=== PATIENT | male | born 1970 | race Two or more races ===

== ENCOUNTER 2023-11-27 22:02 | Emergency (ER) | payer SELFPAY ==
[~2023-11-27] VITALS: Ht 167.6 cm; Wt 86.4 kg
[2023-11-27 23:27] VITALS: BP 160/70; PULSE 66; RESP 16; TEMP 99
[2023-11-28] MEDS ORDERED: METH4TAB3 PO (00:12)
== END 2023-11-28 00:26 | disposition home or self-care (01) ==
LOC: EMS 22:06
DX: M79.2 Neuralgia and neuritis, unspecified (principal); I10 Essential (primary) hypertension
CPT/HCPCS: 70450; 99284